=== PATIENT | female | born 2000 | race Caucasian/White ===

== ENCOUNTER 2021-05-24 12:35 | Emergency (ER) | payer BC, SELFPAY ==
--- NOTE | 2021-05-24 12:40 | ED.FEMALEGU ---
HPI - Female Genitourinary General Chief complaint: Urogenital-Female Stated complaint: POS UTI Time Seen by Provider: 05/24/21 12:40 Source: patient and RN notes reviewed History of Present Illness HPI Narrative: Patient is a 21-year-old female who presents to the urgent care with complaints of a possible UTI. Patient states that she has had UTIs in the past but denies of any diagnosis of within the last 6 months. Patient states that she has had burning and frequency for the last 2 to 3 days and noticed blood in the urine this morning. Patient denies any fever, chills, nausea, vomiting, abdominal pain. Patient has not taken anything [id number] for her symptoms. No other acute complaints. No acute distress noted. Patient aware of the plan of care. Some parts of this dictation were generated by voice recognition software and may contain typographical and/or grammatical inaccuracies. Related Data Allergies Allergy/AdvReac Type Severity Reaction Status Date / Time No Known Allergies Allergy Unverified 10/08/18 11:06 Review of Systems Review of Systems: CONSTITUTIONAL: Denies fever, chills, or sweats. EYES: Denies visual changes, redness, or discharge. ENT: Denies rhinorrhea, congestion, sore throat, or otalgia. CARDIOVASCULAR: Denies chest pain, palpitations, or edema. RESPIRATORY: Denies cough or dyspnea. GASTROINTESTINAL: Denies abdominal pain, nausea, vomiting, or diarrhea. GENITOURINARY: Reports of dysuria and urinary frequency SKIN: Denies rash or itching. MUSCULOSKELETAL: Denies back pain, joint pain, or myalgia. NEUROLOGIC: Denies headache, numbness, or weakness. All other systems reviewed are negative, except as documented in HPI. PMFSH Comments At the time of my signature, I reviewed and agree with the nursing past medical, surgical, social, and family history. There is no relevant family history pertinent to the patient complaint. Exam Narrative: GENERAL: This is a well-nourished, well-developed patient, in no apparent distress. HEAD: normocephalic, atraumatic. EYES: PERRL. Sclera clear/white. Vision is grossly intact. EARS: External ears normal NOSE: External nose normal with no obvious nasal discharge, nares without redness, no rhinorrhea. THROAT: Mucous membranes moist NECK: Neck supple CARDIOVASCULAR: Regular rate and rhythm without murmurs, gallops, or rubs. RESPIRATORY: Clear to auscultation. Breath sounds equal bilaterally. No wheezes, rales, or rhonchi. GASTROINTESTINAL: Abdomen soft, non-tender, nondistended. Bowel sounds are active. SKIN: warm, intact with no suspicious lesions or rash, good texture and turgor. NEURO: awake, alert, and oriented to person, place and time. There were no obvious focal neurologic abnormalities. EXTREMITIES: No clubbing, cyanosis, or edema. BACK: Negative CVA tenderness Course Vital Signs Vital signs: Vital Signs Temperature 98.8 F 05/24/21 12:47 Pulse Rate 113 H 05/24/21 12:47 Respiratory Rate 18 05/24/21 12:47 Blood Pressure 123/85 05/24/21 12:47 Pulse Oximetry 100 05/24/21 12:47 Temperature 98.8 F 05/24/21 12:50 Pulse Rate 113 H 05/24/21 12:50 Respiratory Rate 18 05/24/21 12:50 Blood Pressure 123/85 05/24/21 12:50 Pulse Oximetry 100 05/24/21 12:50 Reviewed MDM - Female Genitourinary MDM Narrative Medical decision making narrative: Reviewed lab results with the patient. She is aware that urine analysis is indicative of a urinary tract infection. Advised the patient to complete the oral antibiotic regimen as prescribed. Increase her water intake and avoid sugary and caffeinated drinks. Wear nonocclusive clothing. Do not sit in soapy bath water. If you develop any increase in symptoms associated with abdominal pain, nausea, vomiting, fever?go to the emergency room. Follow-up with your PCP within 2 to 5 days or for worsening symptoms or failure to improve. Differential Diagnosis Differential diagnosis: Likely urinary tra
[2021-05-24 12:47] VITALS: BP 123/85; PULSE 113; RESP 18; TEMP 37.1; O2SAT 100
[2021-05-24 12:50] VITALS: BP 123/85; PULSE 113; RESP 18; TEMP 37.1; O2SAT 100
== END 2021-05-24 13:19 | disposition home or self-care (01) ==
PROVIDERS: Emergency Provider Nurse Practitioner Family; PCP Pediatrics
DX: N39.0 Urinary tract infection, site not specified (principal)
CPT/HCPCS: 81003; 87077; 87086; 87088; 87186; 99213; G0463